=== PATIENT | male | born 1995 | race Caucasian/White ===

== ENCOUNTER 2017-02-06 10:34 | Observation (INO) | payer OTHER ==
[~2017-02-06] VITALS: Ht 182.9 cm; Wt 103.4 kg
[2017-02-06 10:45] VITALS: BP 120/76; PULSE 62; RESP 16; TEMP 98.2; O2SAT 99
[2017-02-06] MEDS ORDERED: SODIUM CHLORIDE 0.9% FLUSH 10 ML FLUSH IVF PRN (10:45)
[2017-02-06] MEDS ORDERED: METH18 PO (10:45)
[2017-02-06] MEDS ORDERED: ALBU0.63 NEB (10:45)
[2017-02-06 10:46] VITALS: O2SAT 99
--- NOTE | 2017-02-06 10:46 | PD ---
HPI Chief Complaint: Chest Pain Time Seen by Provider: 10:40 Travel History International Travel<30 days: No Contact w/Intl Traveler<30days: No Traveled to known affect area: No History of Present Illness HPI Patient is a 22-year-old male presents emergency department via EMS for evaluation of chest pain. Patient has significant history of endoscopy performed earlier today for dysphagia. Patient states that he's had pain since then. He is coming by his father who is physician in the area and states that his GI doctor wanted to get a CAT scan to exclude esophageal tear or rupture. Patient arrival is fairly comfortable, denies any nausea vomiting dyspnea, shortness of breath, fevers. PFSH Past Medical History Narrative Medical Asthma, dysphagia, Respiratory: Yes (asthma) Past Surgical History Surgical History: No Previous Surgery Family History Family History: Negative Social History Alcohol Use: No Tobacco Use: No Substance Use: No Allergies-Medications (Allergen,Severity, Reaction): Coded Allergies: No Known Allergies (Unverified , 02/06/17) Reported Meds & Prescriptions Reported Meds & Active Scripts Active Reported Concerta (Methylphenidate HCl) 18 Mg Winston 18 Mg PO DAILY Albuterol Neb (Albuterol Sulfate) 0.63 Mg/3 Ml Neb 0.63 Mg NEB Q4HR NEB PRN Review of Systems Except as stated in HPI: all other systems reviewed are Neg Physical Exam Narrative GENERAL: Well-developed well-nourished, quite comfortable appearance, no apparent distress. SKIN: Focused skin assessment warm/dry. HEAD: Atraumatic. Normocephalic. EYES: Pupils equal and round. No scleral icterus. No injection or drainage. ENT: No nasal bleeding or discharge. Mucous membranes pink and moist. NECK: Trachea midline. No JVD. CARDIOVASCULAR: Regular rate and rhythm. No murmur appreciated. No Sebastien's crunch, no rub heard. 2+ bilateral equal pulses in all 4 extremity's. RESPIRATORY: No accessory muscle use. Clear to auscultation. Breath sounds equal bilaterally. GASTROINTESTINAL: Abdomen soft, non-tender, nondistended. Hepatic and splenic margins not palpable. MUSCULOSKELETAL: No obvious deformities. No clubbing. No cyanosis. No edema. NEUROLOGICAL: Awake and alert. No obvious cranial nerve deficits. Motor grossly within normal limits. Normal speech. PSYCHIATRIC: Appropriate mood and affect; insight and judgment normal. Data Data Last Documented VS Vital Signs Date Time Temp Pulse Resp B/P Pulse Ox O2 Delivery O2 Flow Rate FiO2 02/06/17 14:01 62 20 122/71 99 Room Air 02/06/17 10:45 98.2 Orders Electrocardiogram (02/06/17 10:43) Complete Blood Count With Diff (02/06/17 10:43) Comprehensive Metabolic Panel (02/06/17 10:43) Prothrombin Time / Inr (Pt) (02/06/17 10:43) Act Partial Throm Time (Ptt) (02/06/17 10:43) Troponin I (02/06/17 10:43) Ecg Monitoring (02/06/17 10:43) Iv Access Insert/Monitor (02/06/17 10:43) Oximetry (02/06/17 10:43) Oxygen Administration (02/06/17 10:43) Sodium Chloride 0.9% Flush (Ns Flush) (02/06/17 10:45) Ct Thorax/ Chest Wo Iv Contras (02/06/17 ) Consult Gastroenterology (02/06/17 ) Morphine Inj (Morphine Inj) (02/06/17 11:30) (Hub Use Only)Inp Phy Cons/Ref (02/06/17 ) Esophagram (02/06/17 ) Lidocaine 2% Viscous (Xylocaine 2% Visco (02/06/17 12:00) Hydromorphone Pf Inj (Dilaudid Pf Inj) (02/06/17 12:00) Hydromorphone Pf Inj (Dilaudid Pf Inj) (02/06/17 13:30) Ondansetron Inj (Zofran Inj) (02/06/17 13:30) Admit Order (Ed Use Only) (02/06/17 ) Labs Laboratory Tests Test 02/06/17 10:55 White Blood Count 4.5 TH/MM3 Red Blood Count 5.08 MIL/MM3 Hemoglobin 14.6 GM/DL Hematocrit 44.9 % Mean Corpuscular Volume 88.3 FL Mean Corpuscular Hemoglobin 28.8 PG Mean Corpuscular Hemoglobin 32.6 % Concent Red Cell Distribution Width 12.6 % Platelet Count 174 TH/MM3 Mean Platelet Volume 8.6 FL Neutrophils (%) (Auto) 44.6 % Lymphocytes (%) (Auto) 40.7 % Monocytes (%) (Auto) 9.3 % Eosinophils (%) (Auto) 4.5 % Basophils (%) (Auto) 0.9 % Neutrophils # (Auto) 2.0 TH/MM3 Lymphocytes # (Auto) 1.8 TH/MM3 Monocytes # (Auto) 0.4 TH/MM3 Eosinophils # (Auto) 0.2 TH/MM3 Basophils # (Auto) 0.0 TH/MM3 CBC Comment DIFF FINAL Differential Comment Prothrombin Time 11.1 SEC Prothromb Time International 1.0 RATIO Ratio Activated Partial 30.6 SEC Thromboplast Time Sodium Level 140 MEQ/L Potassium Level 4.1 MEQ/L Chloride Level 105 MEQ/L Carbon Dioxide Level 24.2 MEQ/L Anion Gap 11 MEQ/L Blood Urea Nitrogen 11 MG/DL Creatinine 1.06 MG/DL Estimat Glomerular Filtration 89 ML/MIN Rate Random Glucose 92 MG/DL Calcium Level 8.3 MG/DL Total Bilirubin 0.4 MG/DL Aspartate Amino Transf 23 U/L (AST/SGOT) Alanine Aminotransferase 36 U/L (ALT/SGPT) Alkaline Phosphatase 73 U/L Troponin I LESS THAN 0.02 NG/ML Total Protein 7.0 GM/DL Albumin 3.6 GM/DL [facility] Medical Decision Making Medical Screen Exam Complete: Yes Emergency Medical Condition: Yes Interpretation(s) EKG shows normal sinus rhythm with normal axis and normal R-wave progression. No concerning ST segment changes, intervals within normal limits. This is a normal EKG. Differential Diagnosis Postprocedural pain, esophageal rupture, Boerhaave syndrome unlikely, GERD, ACS unlikely. Narrative Course Patient roomed emergency department, coming by his father and later his mother, given multiple doses of pain medicine, lidocaine, CT examination was performed and discussed with the reading radiologist who states that the contrasts given during the exam is on the right side of the chest approaching the edge of the esophagus but not extending into the mediastinum could consider a small abrasion but complete laceration can only be excluded with an esophagram, soft gram was ordered and shows no active contrast extravasation into the mediastinum. Patient still having pain given additional pain medicine. Also consult to 2 the patient's foreign policy officer and Dr. Hart recheck as calm to evaluate the patient. I've discussed with him and will place the patient in observation status secondary to intractable pain. Diagnosis Primary Impression: Chest pain Qualified Code: R07.9 - Chest pain, unspecified type Admitting Information Admitting Physician Requests: Observation Scripts Pantoprazole (Protonix)40 Mg Tab40 Mg PO DAILY #30 TAB Ref 0 Prov:Jesús You MD R1 02/07/17 Lidocaine Viscous Liq 15 Ml Cup15 Ml SWISH-SWAL Q4H PRN (CHEST PAIN) #600 ML Prov:Jesús You MD R1 02/07/17 Tramadol 50 Mg Tab50 Mg PO Q6H PRN (PAIN) #50 TAB Ref 0 Prov:Jesús You MD R1 02/07/17 Condition: Tad Pope MD Feb 06, 2017 10:46
[2017-02-06 11:25] LABS: BASOPHIL % 0.9 % (0.0-2.0); EOSINOPHIL # 0.2 TH/MM3 (0-0.4); EOSINOPHIL % 4.5 % (0.0-4.0); HEMATOCRIT 44.9 % (39.0-51.0); HEMO FLAGS DIFF FINAL; LYMPH % 40.7 % (9.0-44.0); LYMPHOCYTE # 1.8 TH/MM3 (1.0-4.8); MEAN CELL VOLUME 88.3 FL (80.0-100.0); MEAN CORPUSCULAR HEMOGLOBIN 28.8 PG (27.0-34.0); MEAN CORPUSCULAR HGB CONC 32.6 % (32.0-36.0); MONO % 9.3 % (0.0-8.0); NEUT % 44.6 % (16.0-70.0); PLATELET COUNT 174 TH/MM3 (150-450); RED BLOOD COUNT 5.08 MIL/MM3 (4.50-5.90); RED CELL DISTRIBUTION WIDTH 12.6 % (11.6-17.2); WHITE BLOOD COUNT 4.5 TH/MM3 (4.0-11.0)
[2017-02-06 11:28] LABS: APTT (PATIENT) 30.6 SEC (24.3-30.1); PROTHROMBIN TIME - PATIENT 11.1 SEC (9.8-11.6)
[2017-02-06] MEDS ORDERED: MORPHINE SULFATE 4 MG/ML INJ IV PUSH ONE (11:30)
[2017-02-06 11:47] LABS: ANION GAP 11 MEQ/L (5-15); BICARBONATE 24.2 MEQ/L (21.0-32.0); BLOOD UREA NITROGEN 11 MG/DL (7-18); CHLORIDE 105 MEQ/L (98-107); GLOMERULAR FILTRATION RATE 89 ML/MIN (>89); POTASSIUM 4.1 MEQ/L (3.5-5.1); SODIUM (NA) 140 MEQ/L (136-145)
[2017-02-06 11:48] LABS: ALT (GPT) 36 U/L (9-52)
[2017-02-06 11:52] LABS: ALKALINE PHOSPHATASE 73 U/L (45-117); AST (GOT) 23 U/L (15-39); TOTAL BILIRUBIN ADULT 0.4 MG/DL (0.2-1.0)
--- NOTE | 2017-02-06 11:57 | RADRPT ---
EXAM DATE/TIME: 02/06/2017 11:35 [facility] COMPARISON: No previous studies available for comparison. INDICATIONS : Evaluate Eshophageal perforation. RADIATION DOSE: 6.76 CTDIvol (mGy) MEDICAL HISTORY : None Endoscopy today 830 am. SURGICAL HISTORY : None. ENCOUNTER: Initial ACUITY: 1 day PAIN SCALE: 0/10 LOCATION: chest TECHNIQUE: Volumetric scanning of the chest was performed. Using automated exposure control and adjustment of t he mA and/or kV according to patient size, radiation dose was kept as low as reasonably achievable to obtain optimal diagnostic quality images. FINDINGS: LUNGS: There is no consolidation or pneumothorax. No concerning pulmonary nodule is visualized. PLEURAE: There is no pleural thickening or pleural effusion. MEDIASTINUM: There is no evidence of pneumomediastinum or contrast extravasation within the mediastinum to suggest esophageal perforation. The heart and great vessels demonstrate no acute abnormality. There is no m ediastinal or hilar lymphadenopathy. AXILLAE: Within normal limits. No lymphadenopathy. MUSCULOSKELETAL: Mild scoliosis of the thoracic spine. MISCELLANEOUS: The visualized upper abdominal organs demonstrate no acute abnormality. CONCLUSION: 1. No evidence of pneumomediastinum or contrast extravasation within the mediastinum to suggest esoph ageal perforation. 2. Mild scoliosis of the thoracic spine. Tad Alicea MD on February 06, 2017 at 11:52 Board Certified Radiologist. This report was verified electronically.
[2017-02-06] MEDS ORDERED: HYDROmorphone HCL PF 1 MG/ML VIAL IV PUSH ONE ×2 (12:00→13:30)
[2017-02-06] MEDS ORDERED: LIDOCAINE VISCOUS 2% SOLN 15 ML UDC SWISH-SWAL ONE (12:00)
--- NOTE | 2017-02-06 12:42 | PD.CONS ---
GI Consult GI Consult SEE FORMAL GI CONSULT ALSO ([id number]) ASSESSMENT/PLAN: 1. Chest pain--CT chest negative. BS pending 2. Dysphagia-s/p EDG/dil today. PLAN: 1. awaiting BS 2. D/W pt/mother GI cocktail/EGD with clipping/EGD with Stent. 3. Cont NPO for now It was a pleasure seeing Piter Ayala . Thank you for this consult. Entered by: Joaquín Mays MD Feb 06, 2017 12:42
[2017-02-06] MEDS ORDERED: ONDANSETRON HCL 4 MG/2 ML VIAL IV PUSH ONE (13:30)
--- NOTE | 2017-02-06 13:40 | RADRPT ---
EXAM DATE/TIME: 02/06/2017 12:54 [facility] COMPARISON: No previous studies available for comparison. INDICATIONS : Throat pain. FLUORO TIME: 0.9 minutes IMAGE COUNT: 8 CONTRAST: 1. E-Z HD Barium Sulfate (98% w/w) MEDICAL HISTORY : dysphagia SURGICAL HISTORY : endoscopy today ENCOUNTER: Initial ACUITY: 2 months PAIN SCORE: 10/10 LOCATION: Bilateral neck FINDINGS: Limited double contrast esophagram was performed of the cervical and upper thoracic region. There is mild smooth narrowing at the cervical carotid junction. There is no evidence of exercise digital leak age of contrast. There is no evidence of adjacent air. CONCLUSION: No evidence of esophageal tear or perforation involving the cervical or upper thoracic esophagus. Chalino Rivera MD on February 06, 2017 at 13:27 Board Certified Radiologist. This report was verified electronically.
[2017-02-06 14:01] VITALS: BP 122/71; PULSE 62; RESP 20; O2SAT 99
[2017-02-06] MEDS ORDERED: SODIUM CHLORIDE 0.9% FLUSH 10 ML FLUSH IV FLUSH SCH (14:45)
[2017-02-06] MEDS ORDERED: ONDANSETRON HCL 4 MG/2 ML VIAL IVP PRN (15:15)
[2017-02-06] MEDS ORDERED: NALOXONE HCL 0.4 MG/ML AMP IV PRN (15:15)
[2017-02-06] MEDS ORDERED: ACETAMINOPHEN 325 MG TAB PO PRN (15:15)
[2017-02-06] MEDS ORDERED: SODIUM CHLORIDE 0.9% FLUSH 10 ML FLUSH IV FLUSH PRN (15:15)
--- NOTE | 2017-02-06 15:23 | HHI.HP ---
[facility] Service Family Medicine Primary Care Physician Unknown Admission Diagnosis Intractible chest pain after endoscopy. Diagnoses: International Travel<30 Days: No Contact w/Intl Traveler<30days: No Known Affected Area: No History of Present Illness Mr. Ayala is a 22 y/o M with a PMHx of allergies and asthma presenting with chest pain s/p outpatient EGD. Patient reports for over the last 5 months he has had intermittent dysphagia with liquids and solids occurring at random times. These episodes are accompanied with chest discomfort, however will resolve allowing the patient to drink and eat normally between episodes. Due to increased episodes he was scheduled for outpatient EGD with Dr. Leong earlier today. After awakening from the anesthesia he reported 10 out of 10 chest pain leaving him in the position writhing in pain. He was then transported to the [facility] via [facility] for further evaluation. He was given morphine and Dilaudid which lowered his pain to 7-8/10 and allowed him to sleep over the last 5 hours per his report. He states he continues to be in a significant amount of pain. Upon arrival to the ER he was scheduled for barium swallow, however he was unable to swallow the contrast which resulted in 3 vomiting episodes. Of note the patient does report pediatric evaluation of GI tract after ingesting final cleaner resulting in gastric and duodenal ulcers. Otherwise he has no complaints and denies any fevers, chills, shortness of breath, abdominal pain, or calf tenderness. (Jesús You MD R1) Review of Systems Constitutional: DENIES: Fever, Chills Eyes: DENIES: Blurred vision, Double Vision Ears, nose, mouth, throat: COMPLAINS OF: Throat pain, Hoarseness, DENIES: Running Nose Respiratory: DENIES: Cough, Shortness of breath Cardiovascular: COMPLAINS OF: Chest pain, DENIES: Palpitations Gastrointestinal: COMPLAINS OF: Difficulty Swallowing, DENIES: Abdominal pain , Diarrhea, Nausea, Vomiting Genitourinary: DENIES: Dysuria Musculoskeletal: DENIES: Joint pain Integumentary: DENIES: Rash Hematologic/lymphatic: DENIES: Lymphadenopathy Psychiatric: DENIES: Mood changes (Jesús You MD R1) Past Family Social History Past Medical History Pollen allergy Asthma (intermittent) Past Surgical History Denies surgical history. (Jesús You MD R1) Allergies: Coded Allergies: No Known Allergies (Unverified , 02/06/17) Family History Patient denies significant family medical history. Social History Patient visiting his mother and stepfather from [place], [place]. 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 Patient denies any significant tobacco, alcohol, or illicit drug history. ( Jesús You MD R1) Physical Exam Vital Signs Vital Signs Date Time Temp Pulse Resp B/P Pulse Ox O2 Delivery O2 Flow Rate FiO2 02/06/17 14:01 62 20 122/71 99 Room Air 02/06/17 12:38 20 02/06/17 11:40 20 02/06/17 10:46 99 Room Air 02/06/17 10:46 Room Air 02/06/17 10:45 98.2 62 16 120/76 99 Room Air Physical Exam GENERAL: Well-nourished, well-developed 22-year-old patient lying in bed in visible distress SKIN: Warm and dry. No rash. HEENT: Atraumatic, normocephalic with EOMI. PERRLA. Oropharynx clear with no erythema or exudate. MMM. No JVD or LAD appreciated. No rhinorrhea. Neck mildly tender to anterior palpation. CARDIOVASCULAR: Regular rate and rhythm without obvious murmurs, gallops, or rubs. RESPIRATORY: Clear to auscultation bilaterally with no CRW. GASTROINTESTINAL: Abdomen soft, non-tender, nondistended with positive bowel sounds. No masses or hepatosplenomegaly appreciated. MUSCULOSKELETAL: No cyanosis or edema. Strength grossly WNL. BACK: Nontender without obvious deformity. No CVA tenderness. NEURO/PSYCH: Afocal. Awake, alert, and oriented x3. No gross abnormalities. Normal speech and interaction with examiners. Laboratory Laboratory Tests Test 02/06/17 10:55 White Blood Count 4.5 Red Blood Count 5.08 Hemoglobin 14.6 Hematocrit 44.9 Mean Corpuscular Volume 88.3 Mean Corpuscular Hemoglobin 28.8 Mean Corpuscular Hemoglobin 32.6 Concent Red Cell Distribution Width 12.6 Platelet Count 174 Mean Platelet Volume 8.6 Neutrophils (%) (Auto) 44.6 Lymphocytes (%) (Auto) 40.7 Monocytes (%) (Auto) 9.3 Eosinophils (%) (Auto) 4.5 Basophils (%) (Auto) 0.9 Neutrophils # (Auto) 2.0 Lymphocytes # (Auto) 1.8 Monocytes # (Auto) 0.4 Eosinophils # (Auto) 0.2 Basophils # (Auto) 0.0 CBC Comment DIFF FINAL Differential Comment Prothrombin Time 11.1 Prothromb Time International 1.0 Ratio Activated Partial 30.6 Thromboplast Time Sodium Level 140 Potassium Level 4.1 Chloride Level 105 Carbon Dioxide Level 24.2 Anion Gap 11 Blood Urea Nitrogen 11 Creatinine 1.06 Estimat Glomerular Filtration 89 Rate Random Glucose 92 Calcium Level 8.3 Total Bilirubin 0.4 Aspartate Amino Transf 23 (AST/SGOT) Alanine Aminotransferase 36 (ALT/SGPT) Alkaline Phosphatase 73 Troponin I LESS THAN 0.02 Total Protein 7.0 Albumin 3.6 (Jesús You MD R1) Result Diagram: 02/06/17 1055 02/06/17 1055 Imaging Last 72 hours Impressions Esophagus X-Ray 02/06/17 0000 Signed Impressions: Service Date/Time: January 12:54 - CONCLUSION: No evidence of esophageal tear or perforation involving the cervical or upper thoracic esophagus. Chalino Rivera MD Chest CT 02/06/17 0000 Signed Impressions: Service Date/Time: January 11:35 - CONCLUSION: 1. No evidence of pneumomediastinum or contrast extravasation within the mediastinum to suggest esophageal perforation. 2. Mild scoliosis of the thoracic spine. Tad Alicea MD (Jesús You MD R1) Assessment and Plan Assessment and Plan Mr. Ayala is a 22 y/o M with a PMHx of allergies and asthma presenting with chest pain s/p outpatient EGD. He will be admitted for pain control and observation. Code Status Full Discussed Condition With Dr. Hunt, ER physician Dr. Alex Pittman (Jesús You MD R1) Attending Attestation Patient seen and examined. Case reviewed and discussed with the resident team. Agree with plan of care as discussed with me and documented in the resident note. (Vanita Johnson MD) Problem List: (1) Esophageal dysphagia Status: Acute Plan: Patient presenting with acute chest pain s/p EGD evaluating for esophageal dysplasia. Chest CT: No evidence of pneumomediastinum or contrast extravasation within the mediastinum to suggest esophageal perforation. Mild scoliosis of the thoracic spine. Esophageal x-ray: No evidence of esophageal tear perforation involving the cervical or upper thoracic esophagus. CBC: Within normal limits CMP: Within normal limits Troponins: Less than 0.02 Coagulation panel: PT 11.1, INR 1.0, PTT 30.6 Consult gastroenterology, appreciate recommendations Patient to remain nothing by mouth Medications: Morphine 4 mg, Dilaudid 1.5 mg, lidocaine swish and swallow, and Zofran given in ER Lidocaine swish and swallow 15 mils every 4 hours when necessary for chest pain Morphine 3 mg every 3 hours when necessary for pain greater than 5 Protonix 40 mg twice a day Zofran 4 mg every 6 hours when necessary for nausea or vomiting (2) Nutrition, metabolism, and development symptoms Status: Acute Plan: Fluids: D5 half-normal saline at 165 mL per hour (maintenance fluids) as patient is nothing by mouth Diet: Patient Remained nothing by mouth Electrolytes: Within normal limits, continue to monitor GI prophylaxis: Protonix twice a day Prophylaxis: Tylenol when necessary for fever, albuterol when necessary for shortness of breath, Zofran when necessary for nausea or vomiting, clonidine when necessary for BP greater than 180/100, hydroxyzine when necessary for insomnia (3) Contraindication to deep vein thrombosis (DVT) prophylaxis Status: Acute Plan: Hold pharmacological DVT prophylaxis as patient could have possible esophageal complication/hemorrhage SCD/TEDs (Jesús You MD R1) Jesús You MD R1 Feb 06, 2017 15:23 Vanita Johnson MD Feb 07, 2017 08:11
[2017-02-06] MEDS ORDERED: RESP: ALBUTEROL 0.63 MG/3 ML NEB (PRN) NEB (15:30)
[2017-02-06] MEDS ORDERED: MORPHINE SULFATE 4 MG/ML INJ IV PUSH PRN (16:30)
--- NOTE | 2017-02-06 16:36 | HHI.FPPN ---
Subjective Remarks Patient seen, examined and discussed with the medicine team. This is a 22-year-old male from the [place] area here locally visiting his mother and stepfather. He reports that for the past 5 months intermittently he's had difficulty swallowing. For a variable period of time, he will be unable to get liquids or solids down. This has usually passed on its own spontaneously but, while here to visit his mom and stepfather, it was felt that this should be looked into. He had an appointment with Dr. Pasha Leong and had esophagogastroduodenoscopy earlier today. When he awoke from this, he had severe substernal chest discomfort, writhing in pain per his mom. He was unable to get relief and was brought to [facility] via [facility]. He was given morphine which did not help, and Dilaudid in a small dose which seemed to help briefly but he has remained in pain 7-8 out of 10 throughout the day. He's been sleeping, thus this explains why he has not asked for more pain medication. He continues to have significant pain, was tried on a contrast material but had the vomitus. He vomited several times while trying to get imaging of his esophagus to rule out rupture. Please see detailed history and physical examination for this admission for additional past, family, social history and review of systems. 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 Uses no tobacco, occasional alcohol, no illicits. He takes Concerta daily which has helped with his asthma. Objective Vitals Vital Signs Date Time Temp Pulse Resp B/P Pulse Ox O2 Delivery O2 Flow Rate FiO2 02/06/17 15:46 20 02/06/17 14:01 62 20 122/71 99 Room Air 02/06/17 12:38 20 02/06/17 11:40 20 02/06/17 10:46 99 Room Air 02/06/17 10:46 Room Air 02/06/17 10:45 98.2 62 16 120/76 99 Room Air Result Diagram: 02/06/17 1055 02/06/17 1055 Other Results Laboratory Tests Test 02/06/17 10:55 Monocytes (%) (Auto) 9.3 % Eosinophils (%) (Auto) 4.5 % Activated Partial 30.6 SEC Thromboplast Time Calcium Level 8.3 MG/DL Troponin I LESS THAN 0.02 NG/ML Imaging Last Impressions Esophagus X-Ray 02/06/17 0000 Signed Impressions: Service Date/Time: January 12:54 - CONCLUSION: No evidence of esophageal tear or perforation involving the cervical or upper thoracic esophagus. Chalino Rivera MD Chest CT 02/06/17 0000 Signed Impressions: Service Date/Time: January 11:35 - CONCLUSION: 1. No evidence of pneumomediastinum or contrast extravasation within the mediastinum to suggest esophageal perforation. 2. Mild scoliosis of the thoracic spine. Tad Alicea MD Objective Remarks O. CONSTITUTIONAL/GEN: normally nourished, in some distress with painful swallowing. EYES: conjunctiva normal, PERRLA, EOMI. sclerae nonicteric ENT: Mouth and pharynx normal. Mucous membranes are moist NECK: No lymphadenopathy, some midline tenderness to palpation LUNGS: clear A-P, respiratory effort is normal. CARDIOVASCULAR: RR without murmur or gallop. No significant edema. GI/ABD: soft without masses, without organomegaly. Active bowel sounds : no CVA tenderness NEURO: No focal deficits. SKIN: color normal, no rashes noted. HEME/LYMPH: no bruising, petechia or significant adenopathy MUSC: back is normal in appearance. Extremities are normal in appearance. He is slightly tender over the lower third of the sternum, behind which he is experiencing his first chest discomfort. PSYCH/MENTAL STATUS: Alert and oriented x 3. A/P Assessment and Plan Chest pain after an esophagogastroduodenoscopy, rupture has been ruled out at this point. Attending Attestation Patient seen and examined. Case reviewed and discussed with the resident team. Agree with plan of care as discussed with me and documented in the resident note. Problem List: (1) Esophageal dysphagia Status: Acute Plan: See orders Vanita Johnson MD Feb 06, 2017 16:36
[2017-02-06] MEDS ORDERED: LIDOCAINE VISCOUS 2% SOLN 15 ML UDC SWISH-SWAL PRN (16:45)
[2017-02-06 17:00] VITALS: BP 124/60; PULSE 70; RESP 16; TEMP 97; O2SAT 99
[2017-02-06] MEDS: PANTOPRAZOLE SODIUM 40 MG VIAL IV PUSH SCH (17:26)
--- NOTE | 2017-02-06 17:53 | MB ---
cc: JESUS LEONG M.D., ROBERT J. MD PASRICHA, SUNIL P. M.D. DATE OF CONSULTATION: 02/06/2017 REASON FOR CONSULTATION: I have been asked to see the patient as requested for evaluation of chest pain post procedure. The patient is a pleasant 22-year-old white male who saw Dr. Leong in the office. He has had a history of dysphagia for about five months and the symptoms occur with liquids and solids in the throat area. He denies any significant reflux. Today Dr. Leong did an upper endoscopy on him and he had mild esophagitis noted in the lower esophagus and there is a possibility of eosinophilic esophagitis also. The patient was dilated with a 16 mm Savary dilator but very minimal resistance. Although he is sitting comfortably in our postoperative area he complained of significant chest pain. He was sent to [place] emergency room and a CT scan of the chest did not show any perforation. In addition his white blood cell count is normal. When I talked to him in the emergency room he was still complaining of chest pain, again it is quite significant, he did have some lidocaine which helped a little but not much, this is a oral lidocaine, not that much. There has been no odynophagia or early satiety, no shortness of breath or palpitations. There has been no melena, diarrhea or constipation. PAST MEDICAL HISTORY: Notable for dysphagia Possibly some reactive airway disease he does take albuterol. SOCIAL HISTORY Does not smoke or drink. FAMILY HISTORY: Noncontributory for any colon cancer or colon polyps. PAST SURGICAL HISTORY: None except the recent upper endoscopy. REVIEW OF SYSTEMS No weight loss. CARDIOPULMONARY: He has had chest pain mentioned above. No palpation, wheezes heard in chest. GASTROINTESTINAL: Please see above. It is benign other then dysphagia. Otherwise is an unremarkable ten point review of systems. MEDICATIONS: 1. Concerta 2. Albuterol nebulizer. 3. In the hospital are; Xylocaine. 4. Dilaudid. 5. Morphine. PHYSICAL EXAMINATION: VITAL SIGNS: Blood pressure is 120/76, pulse is 68, respiratory 16, temperature 98.2. IN GENERAL: He is a well-developed, well-nourished white male surprised resting comfortably in bed. He complains of chest pain. NECK: Neck is supple without lymphadenopathies. There is no subcutaneous emphysema. Oropharynx has no blood or significant lesions. NECK: Neck is supple without lymphadenopathy. LUNGS: Clear. HEART: Heart regular diet. No gross murmur is heard. ABDOMEN: The abdomen is soft, nondistended, nontender, no organomegaly. No ascites. No hernias. EXTREMITIES: No cyanosis, clubbing or edema. NEUROLOGIC: She is grossly intact and did not assess gait. RECTUM: I did not do a rectal exam on her. SKIN: The skin is warm and dry. DATABASE: A CT scan of the chest was done which reveals no evidence of any pneumomediastinum or contrast extravasation within the mediastinum to suggest the esophageal perforation. There is mild scoliosis of the thoracic spine. LABORATORY TESTS: Laboratories revealed a pro time of 11.1, INR 1.0, PTT of 30.6. Total bilirubin 0.4, SGOT 23, SGPT of 36, alk phos of 73, BUN 11, creatinine 1.06. Hemoglobin was 14.6, white blood cell count was 4500, hematocrit 40.9, MCV 88.3, platelet count of 174,000. Barium swallow has been ordered. IMPRESSION 1. Chest pain, post procedure for the epigastric dilatation for this patient. The patient had some evidence of esophagitis and grayson the CT scan did not show any perforation. A Barium swallow is pending. The patients and the patients mother are aware that he may have mucosal tears and sometimes if they are deep enough they can cause chest pain without perforation. This also maybe intense spasm. However barium swallow will be done shortly. 2. Dysphagia status post epigastric dilatation site. As mentioned. RECOMMENDATIONS: 1. Await barium swallow. 2. Continue npo for now. 3. I discussed with mother that in the future that depending what the Barium swallow shows he may need to be on a liquid diet for several days, Carafate slurry as well a GI cocktail as needed for pain. However, if there is a perforation, options include observation with IV antibiotics, upper endoscopy with possible endoscopic clipping of the defect although this maybe difficult depending on where the defect is and how big it is, in addition upper endoscopy with placement of a covered metallic stent, although this can cause pain as the stent dilates. However, the family and patient understand we are getting ahead of ourselves and we will wait for the barium swallow to come back and we will go from there. 4. The case was also discussed with the emergency room physician. 5. We have briefly discussed indications, risks, complications benefits, alternatives and limitations regarding the procedure including the risks of bleeding, perforation, infection, arrhythmias and small possibility of . He stands that myself and partners will do the examination. MD TANYA Clinton/shayy /12:45 PM /5:03 PM
[2017-02-06 20:00] VITALS: BP 107/60; PULSE 73; RESP 16; TEMP 97; O2SAT 100
[2017-02-06] MEDS: HYDROmorphone HCL PF 1 MG/ML VIAL IV PUSH PRN (20:19)
[2017-02-06] MEDS: SODIUM CHLORIDE 0.9% FLUSH 10 ML FLUSH IV FLUSH SCH (20:19)
[2017-02-06] MEDS ORDERED: hydrOXYzine HCL 50 MG TAB PO PRN (21:30)
[2017-02-06] MEDS ORDERED: cloNIDine HCL 0.1 MG TAB PO PRN (21:30)
[2017-02-06 22:24] VITALS: O2SAT 98
[2017-02-06] MEDS: DEXT 5%-NACL 0.45% 1000 ML INJ 1,000 ML IV SCH (23:21)
[2017-02-07 00:50] VITALS: BP 121/65; PULSE 67; RESP 16; TEMP 97.2; O2SAT 97
[2017-02-07 04:05] VITALS: BP 116/58; PULSE 53; RESP 16; TEMP 96.8; O2SAT 98
[2017-02-07] MEDS: PANTOPRAZOLE SODIUM 40 MG VIAL IV PUSH SCH (06:56)
[2017-02-07] MEDS: DEXT 5%-NACL 0.45% 1000 ML INJ 1,000 ML IV SCH ×2 (06:56→09:38)
[2017-02-07 08:00] VITALS: BP 118/85; PULSE 60; RESP 16; TEMP 97.9; O2SAT 99
[2017-02-07] MEDS: SODIUM CHLORIDE 0.9% FLUSH 10 ML FLUSH IV FLUSH SCH (08:15)
[2017-02-07] MEDS: HYDROmorphone HCL PF 1 MG/ML VIAL IV PUSH PRN (08:15)
--- NOTE | 2017-02-07 08:50 | HHI.FPPN ---
Subjective Remarks Pt seen and examined this morning. No acute events overnight. Pt did get some sleep overnight, he remains NPO. He reports that he still has pain, now pain is in his upper throat. Chest pain has resolved. Pain is worse with swallowing. He reports that Dilaudid is more effective for pain control. He feels that he has improved since admission. (Thompson Pittman MD R2) Objective Vitals Vital Signs Date Time Temp Pulse Resp B/P Pulse Ox O2 Delivery O2 Flow Rate FiO2 02/07/17 04:05 96.8 53 16 116/58 98 02/07/17 00:50 97.2 67 16 121/65 97 02/06/17 22:24 98 02/06/17 20:00 97.0 73 16 107/60 100 02/06/17 17:00 97.0 70 16 124/60 99 02/06/17 15:46 20 02/06/17 14:01 62 20 122/71 99 Room Air 02/06/17 12:38 20 02/06/17 11:40 20 02/06/17 10:46 99 Room Air 02/06/17 10:46 Room Air 02/06/17 10:45 98.2 62 16 120/76 99 Room Air I/O 02/06/17 02/06/17 02/06/17 02/07/17 02/07/17 02/07/17 07:00 15:00 23:00 07:00 15:00 23:00 Intake Total 0 ml 0 ml Output Total 900 ml Balance 0 ml -900 ml Intake Oral 0 ml 0 ml Output Urine Total 900 ml # Voids 3 # Bowel Movements 0 0 (Thompson Pittman MD R2) Result Diagram: 02/06/17 1055 02/06/17 1055 Objective Remarks GENERAL: Well-nourished, well-developed 22-year-old patient lying in bed in no acute distress. SKIN: Warm and dry. No rash. HEENT: Atraumatic, normocephalic with EOMI. PERRLA. Oropharynx clear with no erythema or exudate. MMM. No JVD or LAD appreciated. No rhinorrhea. CARDIOVASCULAR: Regular rate and rhythm without obvious murmurs, gallops, or rubs. RESPIRATORY: Clear to auscultation bilaterally with no CRW. GASTROINTESTINAL: Abdomen soft, non-tender, nondistended with positive bowel sounds. No masses or hepatosplenomegaly appreciated. MUSCULOSKELETAL: No cyanosis or edema. Strength grossly WNL. BACK: Nontender without obvious deformity. No CVA tenderness. NEURO/PSYCH: Afocal. Awake, alert, and oriented x3. No gross abnormalities. Normal speech and interaction with examiners. (Thompson Pittman MD R2) A/P Assessment and Plan Mr. Ayala is a 22 y/o M with a PMHx of allergies and asthma presenting with chest pain s/p outpatient EGD, admitted for pain control and observation. Discharge Planning Anticipate discharge pending pain control and clearance from GI. Likely later today or tomorrow. (Thompson Pittman MD R2) Attending Attestation Patient seen and examined. Case reviewed and discussed with the resident team. Agree with plan of care as discussed with me and documented in the resident note. (Vanita Johnson MD) Problem List: (1) Esophageal dysphagia Status: Acute Plan: Patient presenting with acute chest pain s/p EGD evaluating for esophageal dysplasia. Chest CT: No evidence of pneumomediastinum or contrast extravasation within the mediastinum to suggest esophageal perforation. Mild scoliosis of the thoracic spine. Esophageal x-ray: No evidence of esophageal tear perforation involving the cervical or upper thoracic esophagus. CBC: Within normal limits CMP: Within normal limits Troponin: Less than 0.02 Coagulation panel: PT 11.1, INR 1.0, PTT 30.6 Consult gastroenterology, appreciate recommendations Patient to remain nothing by mouth, diet to be advanced per GI recommendations Medications: Dilaudid increased to 1 mg Q4 Lidocaine swish and swallow 15 mils every 4 hours when necessary for throat pain Morphine 3 mg every 3 hours when necessary for pain greater than 5 Protonix 40 mg twice a day Zofran 4 mg every 6 hours when necessary for nausea or vomiting (2) Nutrition, metabolism, and development symptoms Status: Acute Plan: Fluids: D5 half-normal saline at 165 mL per hour (maintenance fluids) as patient is nothing by mouth Diet: Patient Remained NPO Electrolytes: Within normal limits, continue to monitor GI prophylaxis: Protonix twice a day Prophylaxis: Tylenol when necessary for fever, albuterol when necessary for shortness of breath, Zofran when necessary for nausea or vomiting, clonidine when necessary for BP greater than 180/100, hydroxyzine when necessary for insomnia (3) Contraindication to deep vein thrombosis (DVT) prophylaxis Status: Acute Plan: Hold pharmacological DVT prophylaxis as patient could have possible esophageal complication/hemorrhage SCD/TEDs (Thompson Pittman MD R2) Thompson Pittman MD R2 Feb 07, 2017 08:49 Vanita Johnson MD Feb 07, 2017 12:20
--- NOTE | 2017-02-07 10:03 | HHI.GIFU ---
GI Follow-up Note Consult Follow-up Subjective: Patient laying in bed comfortably. Chest pain resolved. Throat still hurts. Xylocaine does help for a time. had water last PM Objective: PHYSICAL EXAMINATION: Vitals signs stable No fever HEENT: Pupils round and reactive to light; normocephalic; atraumatic; no jaundice. Throat is clear. NECK: Neck is supple, no JVD, no lymphadenopathy. CHEST: Chest is clear to auscultation and percussion. CARDIAC: Regular rate and rhythm with no murmur gallop or rubs. ABDOMEN: Soft, nondistended, nontender; no hepatosplenomegaly; bowel sounds are present in all four quadrants. HEAD OF LOSS PREVENTION: alert and oriented times three. Available Data (labs, X- Rays, Procedures) : CT chest and esophagram--no perforation ASSESSMENT/PLAN: 1. Chest pain-better 2. Throat pain 3. Dysphagia PLAN: 1. trial of clear liquids-avoid acid foods and extreme hot and cold foods 2. Give viscous Xylocaine before each meal 3. If tolerating diet he can be D/C with F/U with Dr. Leong in 1-2 weeks 4. for outpt pain control--try Tramadol It was a pleasure seeing Piter Ayala. Thank you for this consult. Entered by: Joaquín Mays MD Feb 07, 2017 10:03
[2017-02-07] MEDS ORDERED: TRAM50TA PO (12:29)
[2017-02-07] MEDS ORDERED: LIDO1SOL8 SWISH-SWAL (12:29)
[2017-02-07] MEDS ORDERED: PROT40TA PO (12:29)
--- NOTE | 2017-02-07 12:29 | HHI.DCPOC ---
Discharge Care Plan Diagnosis: (1) Esophageal dysphagia Goals to Promote Your Health * To prevent worsening of your condition and complications * To maintain your health at the optimal level Directions to Meet Your Goals Take your medications as prescribed Follow your dietary instruction Follow activity as directed Keep your appointments as scheduled Take your immunizations and boosters as scheduled If your symptoms worsen call your PCP, if no PCP go to Urgent Care Center or Emergency Room Smoking is Dangerous to Your Health. Avoid second hand smoke Call the 24-hour hour crisis hotline for domestic abuse at Jesús You MD R1 Feb 07, 2017 12:29
[2017-02-07] MEDS ORDERED: HYDROmorphone HCL PF 1 MG/ML VIAL IV PUSH PRN (12:30)
--- NOTE | 2017-02-07 22:58 | EKG ---
Date Performed: 02/06/2017 Time Performed: 11:01:22 PTAGE: 22 years EKG: Sinus rhythm NORMAL ECG NO PREVIOUS TRACING DOCTOR: Marianna Louise Interpretating Date/Time 02/07/2017 22:57:24
== END 2017-02-07 14:48 | disposition home or self-care (01) ==
LOC: NEPC 10:34 → NEDA 14:35 → N06A 16:36
PROVIDERS: ADMIT Family Medicine; ATTEND Family Medicine
DX: R07.89 Other chest pain (principal); R13.19 Other dysphagia; J45.909 Unspecified asthma, uncomplicated
CPT/HCPCS: 71250; 74220; 80053; 84484; 85025; 85610; 85730; 93005; 96374; 96375; 96376; 97161; 99285; C9113; G0378; G8987; G8988; J1170; J2270; J2405